=== PATIENT | female | born 1985 | race African-American/Black ===

== ENCOUNTER 2016-05-22 10:35 | Emergency (ER) | payer OTHER ==
[~2016-05-22] VITALS: Ht 167.6 cm; Wt 66.7 kg
[~2016-05-22 10:35] MED LIST: NAPROSYN500 MG PO; NOHOMEMEDICATIONS; NORFLEX100 MG PO
[2016-05-22 10:36] VITALS: BP 118/78
[2016-05-22] MEDS ORDERED: MEDROL DOSPAK21 TAB PO (10:55)
== END 2016-05-22 11:10 | disposition home or self-care (01) ==
LOC: ER 10:35
DX: L50.8 Other urticaria (principal); Z88.0 Allergy status to penicillin; Z88.2 Allergy status to sulfonamides

== ENCOUNTER 2017-11-07 10:09 | Emergency (ER) | payer OTHER ==
[~2017-11-07] VITALS: Ht 167.6 cm; Wt 72.6 kg
[~2017-11-07 10:09] MED LIST changes: +MEDROL DOSPAK21 TAB PO
[2017-11-07] MEDS ORDERED: MOBIC7.5 MG PO (10:37)
[2017-11-07] MEDS ORDERED: HYDROCODONE-AP1 EAC6 PO (10:37)
[2017-11-07] MEDS ORDERED: CRUTCHES MISCELL (10:38)
[2017-11-07 10:50] VITALS: BP 123/77
== END 2017-11-07 10:50 | disposition home or self-care (01) ==
LOC: ER 10:09
DX: S90.31XA Contusion of right foot, initial encounter (principal); Z88.0 Allergy status to penicillin; Z88.2 Allergy status to sulfonamides; W20.8XXA Other cause of strike by thrown, projected or falling object, initial encounter; Y92.89 Other specified places as the place of occurrence of the external cause; Y93.89 Activity, other specified; Y99.8 Other external cause status

== ENCOUNTER 2018-05-18 07:37 | Emergency (ER) | payer OTHER ==
[~2018-05-18] VITALS: Ht 167.6 cm; Wt 72.6 kg
[~2018-05-18 07:37] MED LIST changes: +CRUTCHES MISCELL; +HYDROCODONE-AP1 EAC6 PO; +MOBIC7.5 MG PO
[2018-05-18 07:39] VITALS: BP 122/75
[2018-05-18] MEDS ORDERED: NAPROSYN500 MG PO (08:19)
[2018-05-18] MEDS ORDERED: NORFLEX100 MG PO (08:19)
== END 2018-05-18 08:28 | disposition home or self-care (01) ==
LOC: ER 07:37
DX: S39.012A Strain of muscle, fascia and tendon of lower back, initial encounter (principal); S13.4XXA Sprain of ligaments of cervical spine, initial encounter; Z88.0 Allergy status to penicillin; Z88.2 Allergy status to sulfonamides; V89.2XXA Person injured in unspecified motor-vehicle accident, traffic, initial encounter; Y92.89 Other specified places as the place of occurrence of the external cause; Y93.89 Activity, other specified; Y99.8 Other external cause status

== ENCOUNTER 2019-02-24 21:44 | Emergency (ER) | payer OTHER ==
[2019-02-24 22:32] LABS: URINE BILIRUBIN NEGATIVE (Negative); URINE BLOOD NEGATIVE (Negative); URINE CLARITY CLEAR; URINE COLOR YELLOW; URINE GLUCOSE-RANDOM* NEGATIVE (Negative); URINE KETONES NEGATIVE (Negative); URINE LEUKOCYTES NEGATIVE (Negative); URINE NITRITE NEGATIVE (Negative); URINE PROTEIN (DIPSTICK) NEGATIVE (Negative); URINE SPECIFIC GRAVITY >= 1.030 (1.005-1.035); URINE UROBILINOGEN 0.2 E.U./dl (0.2-1.0)
[2019-02-24 22:58] LABS: ABSOLUTE NEUTROPHILS 4.8 thou/uL (1.4-8.2); BASOPHILS 0.9 % (0.0-2.0); HEMATOCRIT 40.2 % (37.0-47.0); HEMOGLOBIN 13.2 gm/dL (12.0-15.0); LYMPHOCYTES 21.7 % (24.0-44.0); MCH 29.5 pg (26.0-34.0); MCV 89.4 fL (80.0-100.0); MONOCYTES 7.9 % (1.0-8.0); PLATELET COUNT 197 thou/uL (150-400); POLYS 67.5 % (36.0-66.0); RDW 12.9 % (10.5-14.5); WBC 7.2 thou/uL (4.0-11.0)
[2019-02-24 23:04] LABS: ANION GAP 6 mmol/L (7-16); BUN 7 mg/dL (7-18); CHLORIDE 102 mmol/L (98-107); CO2 29 mmol/L (21-32); CREATININE 0.9 mg/dL (0.6-1.0); GLUCOSE 110 mg/dL (74-106); POTASSIUM 3.7 mmol/L (3.5-5.1); SODIUM 137 mmol/L (136-145)
[2019-02-24 23:12] LABS: ALBUMIN 3.4 g/dL (3.4-5.0); DIRECT BILIRUBIN < 0.1 mg/dL (<0.1-0.3); SGOT 14 U/L (15-37); SGPT 18 U/L (30-65); TOTAL BILIRUBIN 0.3 mg/dL (<0.1-1.0); TOTAL PROTEIN 7.7 g/dL (6.4-8.2)
[2019-02-25 01:11] VITALS: BP 000/00
== END 2019-02-25 01:13 | disposition home or self-care (01) ==
LOC: ER 21:44
PROVIDERS: Emergency Medicine
DX: B34.9 Viral infection, unspecified (principal); R11.10 Vomiting, unspecified; Z88.0 Allergy status to penicillin; Z88.2 Allergy status to sulfonamides

== ENCOUNTER 2019-05-05 10:30 | Emergency (ER) | payer OTHER ==
[~2019-05-05] VITALS: Ht 167.6 cm; Wt 70.3 kg
[2019-05-05] MEDS ORDERED: PREDNISONE 10 M10 MG PO (12:17)
[2019-05-05] MEDS ORDERED: TESSALON PERLE100 M1 PO (12:17)
[2019-05-05] MEDS ORDERED: PROAIR HFA8.5 GM INH (12:17)
[2019-05-05 12:41] VITALS: BP 118/79
== END 2019-05-05 12:41 | disposition home or self-care (01) ==
LOC: ER 10:30
DX: J40 Bronchitis, not specified as acute or chronic (principal); Z88.0 Allergy status to penicillin; Z88.1 Allergy status to other antibiotic agents; Z88.2 Allergy status to sulfonamides

== ENCOUNTER 2020-03-30 22:41 | Emergency (ER) | payer OTHER ==
[~2020-03-30] VITALS: Ht 167.6 cm; Wt 70.3 kg
[~2020-03-30 22:41] MED LIST changes: +PREDNISONE 10 M10 MG PO; +PROAIR HFA8.5 GM INH; +TESSALON PERLE100 M1 PO
[2020-03-30 23:24] LABS: ABSOLUTE NEUTROPHILS 3.2 thou/uL (1.4-8.2); BASOPHILS 0.5 % (0.0-2.0); EOSINOPHILS 0.3 % (0.0-3.0); HEMATOCRIT 39.7 % (37.0-47.0); HEMOGLOBIN 12.9 gm/dL (12.0-15.0); LYMPHOCYTES 35.1 % (24.0-44.0); MCH 29.7 pg (26.0-34.0); MCHC 32.6 g/dL (28.0-37.0); MCV 91.1 fL (80.0-100.0); MONOCYTES 5.7 % (1.0-8.0); PLATELET COUNT 203 thou/uL (150-400); POLYS 58.4 % (36.0-66.0); RBC 4.35 mil/uL (4.20-5.00); RDW 12.9 % (10.5-14.5); WBC 5.5 thou/uL (4.0-11.0)
[2020-03-30 23:33] LABS: ANION GAP 9 mmol/L (7-16); BUN 15 mg/dL (7-18); CALCIUM 9.5 mg/dL (8.5-10.1); CHLORIDE 100 mmol/L (98-107); CO2 29 mmol/L (21-32); GLUCOSE 91 mg/dL (74-106); POTASSIUM 3.5 mmol/L (3.5-5.1); SODIUM 138 mmol/L (136-145)
[2020-03-30 23:41] LABS: TROPONIN-I <0.06 ng/mL (<0.06)
[2020-03-31 00:42] VITALS: BP 116/75
--- NOTE | 2020-04-01 07:12 | EKG ---
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
== END 2020-03-31 00:43 | disposition home or self-care (01) ==
LOC: ER 22:41
PROVIDERS: Emergency Medicine
DX: R07.89 Other chest pain (principal); Z79.899 Other long term (current) drug therapy; Z88.0 Allergy status to penicillin; Z88.2 Allergy status to sulfonamides; Z88.8 Allergy status to other drugs, medicaments and biological substances

== ENCOUNTER 2020-08-01 16:47 | Emergency (ER) | payer OTHER ==
[2020-08-01 16:48] VITALS: BP 115/96
[2020-08-01 17:15] LABS: ABSOLUTE NEUTROPHILS 2.5 thou/uL (1.4-8.2); BASOPHILS 0.5 % (0.0-2.0); EOSINOPHILS 0.4 % (0.0-3.0); HEMATOCRIT 42.5 % (37.0-47.0); LYMPHOCYTES 32.9 % (24.0-44.0); MCH 29.3 pg (26.0-34.0); MCHC 32.9 g/dL (28.0-37.0); MCV 89.1 fL (80.0-100.0); MONOCYTES 6.7 % (1.0-8.0); PLATELET COUNT 218 thou/uL (150-400); POLYS 59.5 % (36.0-66.0); RBC 4.77 mil/uL (4.20-5.00); WBC 4.2 thou/uL (4.0-11.0)
[2020-08-01 17:21] LABS: ANION GAP 9 mmol/L (7-16); BUN 9 mg/dL (7-18); CHLORIDE 100 mmol/L (98-107); CO2 26 mmol/L (21-32); CREATININE 0.9 mg/dL (0.6-1.0); GLUCOSE 96 mg/dL (74-106); POTASSIUM 3.8 mmol/L (3.5-5.1); SODIUM 135 mmol/L (136-145)
[2020-08-01 17:32] LABS: ALBUMIN 4.4 g/dL (3.4-5.0); SGOT 24 U/L (15-37); SGPT 38 U/L (14-59); TOTAL BILIRUBIN 0.4 mg/dL (0.2-1.0); TOTAL PROTEIN 8.1 g/dL (6.4-8.2); TROPONIN-I <0.06 ng/mL (<0.06)
== END 2020-08-01 21:55 | disposition left against medical advice (07) ==
LOC: ER 16:47
PROVIDERS: Emergency Medicine
DX: R07.89 Other chest pain (principal); Z53.21 Procedure and treatment not carried out due to patient leaving prior to being seen by health care provider

== ENCOUNTER 2020-08-27 18:55 | Emergency (ER) | payer OTHER ==
[~2020-08-27] VITALS: Ht 167.6 cm; Wt 68.0 kg
[2020-08-27 20:22] LABS: HEMATOCRIT 39.8 % (37.0-47.0); HEMOGLOBIN 13.3 gm/dL (12.0-15.0); MCH 29.9 pg (26.0-34.0); MCHC 33.3 g/dL (28.0-37.0); MCV 89.7 fL (80.0-100.0); RBC 4.44 mil/uL (4.20-5.00); RDW 12.9 % (10.5-14.5); WBC 3.5 thou/uL (4.0-11.0)
[2020-08-27 20:31] LABS: CREATININE 0.9 mg/dL (0.6-1.0); POTASSIUM 3.9 mmol/L (3.5-5.1)
[2020-08-27] MEDS ORDERED: ZYRTEC10 M2 PO (21:15)
[2020-08-27] MEDS ORDERED: ONDANSETRON HCL4 M2 PO (21:15)
[2020-08-27] MEDS ORDERED: FLONASE 0.05%50 MCG NARES (21:15)
[2020-08-27] MEDS ORDERED: PREDNISONE 20 M20 MG PO (21:15)
[2020-08-27 21:51] VITALS: BP 131/90
== END 2020-08-27 21:56 | disposition home or self-care (01) ==
LOC: ER 18:55
PROVIDERS: Physician Assistant
DX: R09.81 Nasal congestion (principal); T36.4X5A Adverse effect of tetracyclines, initial encounter; R11.0 Nausea; Z88.1 Allergy status to other antibiotic agents; Z88.0 Allergy status to penicillin; Z88.2 Allergy status to sulfonamides; Y92.89 Other specified places as the place of occurrence of the external cause

== ENCOUNTER 2020-12-26 17:44 | Emergency (ER) | payer OTHER ==
[~2020-12-26] VITALS: Ht 167.6 cm; Wt 72.6 kg
[~2020-12-26 17:44] MED LIST changes: +FLONASE 0.05%50 MCG NARES; +ONDANSETRON HCL4 M2 PO; +PREDNISONE 20 M20 MG PO; +ZYRTEC10 M2 PO
[2020-12-26 17:53] VITALS: BP 127/82
[2020-12-26 19:00] LABS: HEMATOCRIT 38.5 % (37.0-47.0); HEMOGLOBIN 12.7 gm/dL (12.0-15.0); MCH 29.7 pg (26.0-34.0); RBC 4.28 mil/uL (4.20-5.00); RDW 12.4 % (10.5-14.5); WBC 4.9 thou/uL (4.0-11.0)
[2020-12-26 19:13] LABS: ANION GAP 6 mmol/L (7-16); BUN 11 mg/dL (7-18); CALCIUM 8.8 mg/dL (8.5-10.1); CHLORIDE 102 mmol/L (98-107); CO2 28 mmol/L (21-32); CREATININE 0.8 mg/dL (0.6-1.0); GLUCOSE 88 mg/dL (74-106); POTASSIUM 3.7 mmol/L (3.5-5.1); SODIUM 136 mmol/L (136-145)
[2020-12-26 19:19] LABS: ALBUMIN 3.6 g/dL (3.4-5.0); SGOT 18 U/L (15-37); SGPT 31 U/L (30-65); TOTAL BILIRUBIN 0.2 mg/dL (0.2-1.0); TOTAL PROTEIN 6.9 g/dL (6.4-8.2); TROPONIN-I <0.06 ng/mL (<0.06)
[2020-12-26 19:26] LABS: URINE BILIRUBIN NEGATIVE (Negative); URINE BLOOD NEGATIVE (Negative); URINE CLARITY CLEAR; URINE COLOR YELLOW; URINE GLUCOSE-RANDOM* NEGATIVE (Negative); URINE KETONES NEGATIVE (Negative); URINE LEUKOCYTES-REFLEX NEGATIVE (Negative); URINE NITRITE-REFLEX NEGATIVE (Negative); URINE PROTEIN (DIPSTICK) NEGATIVE (Negative); URINE UROBILINOGEN 0.2 E.U./dl (0.2-1.0)
--- NOTE | 2020-12-27 07:09 | EKG ---
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1985 Requested By: Anh Paulino Order Number: [id number] MD: Kahlil Nielsen Measurements Intervals [place] Rate: 77 P: 26 VA: 163 QRS: 22 QRSD: 96 T: 34 QT: 371 QTc: 420 Interpretive Statements Sinus rhythm Low voltage, precordial leads Baseline wander in lead(s) II,III,aVF Compared to ECG 03/30/2020 23:14:50 Low QRS voltage now present Electronically Signed On 12-27-2020 7:09:04 CDT by Kahlil Nielsen [email or web address] <ELECTRONICALLY SIGNED> By: Kahlil Nielsen MD, [facility] 12/27/20 0709 1758 1758 Kahlil Nielsen MD, [facility] /EPI
== END 2020-12-26 20:28 | disposition home or self-care (01) ==
LOC: ER 17:44
PROVIDERS: Emergency Medicine; Nurse Practitioner Family
DX: R07.89 Other chest pain (principal); Z20.822 Contact with and (suspected) exposure to COVID-19; Z88.1 Allergy status to other antibiotic agents; Z88.0 Allergy status to penicillin; Z88.2 Allergy status to sulfonamides